=== PATIENT | male | born 1935 | race Caucasian/White ===

== ENCOUNTER 2017-05-15 17:58 | Inpatient (IN) | payer MEDICARE, OTHER ==
[2017-05-15 18:17] VITALS: BMI 27.9
[2017-05-15 18:19] LABS: BASO % 0.3 % (0.0-2.0); EOS # 0.2 K/uL (0.0-0.7); EOS % 1.9 % (0.0-4.0); HEMOGLOBIN 12.4 g/dL (12.0-18.0); LYMPH # 4.3 K/uL (1.0-4.3); MEAN CELL VOLUME 87.2 fL (80.0-94.0); MEAN CORPUSCULAR HEMOGLOBIN 29.2 pg (27.0-31.0); MEAN CORPUSCULAR HGB CONC 33.5 g/dL (33.0-37.0); MEAN PLATELET VOLUME 7.7 fL (7.2-11.7); MONO # 0.7 K/uL (0.0-0.8); MONO % 7.1 % (0.0-10.0); NEUT % 43.7 % (50.0-75.0); NRBC % 0.1 % (0.0-2.0); RBC 4.26 Mil/uL (4.40-5.90); RED CELL DISTRIBUTION WIDTH 12.7 % (11.5-14.5); WHITE BLOOD COUNT 9.2 K/uL (4.8-10.8)
[2017-05-15 18:27] LABS: PROTHROMBIN TIME 11.1 SECONDS (9.7-12.2)
--- NOTE | 2017-05-15 18:30 | CP.PCM.PN ---
<Gemma Malone - Last Filed: 05/15/17 18:24> Subjective - Date & Time of Evaluation Date of Evaluation: 05/15/17 Time of Evaluation: 18:24 - Subjective Subjective: CODE Heart - 18:04 CC: Chest pain x 2 days HPI: History retrieved from , who was at bedside. 81 M with PMHx of Epilepsy presents to the ED with chest pain x 2 days. reports the chest pain started last night, while he was watching TV. Pain was sharp, constant, midsternal with no radiation. Patient admitted to nausea, no vomiting, no diaphoresis. The pain persisted today, patient went to see his PMD - who told him to go to the ED. EKG reviewed, ST elevation noted in II, III, AVF with ischemia noted on anterior leads. Patient give ASA, nitro, Heparin drip, and brillanta. Patient is for cardiac catherization. PMHx: Epilepsy PSHx: Appendectomy Meds: Dilatan 100mg PO BID, Xanax 0.5mg PO Q12H All: NKDA SHx: Smoked 36 years ago, for 1 year - 6-10 / day, denied alcohol or illicit drug use FHx: Unremarkable PMD: Dr. Arndt? Gemma Malone DO, PGY-1 Objective - Vital Signs/Intake and Output Vital Signs (last 24 hours): Temp Pulse Resp BP Pulse Ox 98.3 F 85 20 141/77 99 05/15/17 18:07 05/15/17 18:07 05/15/17 18:07 05/15/17 18:07 05/15/17 18:07 - Labs Labs: 05/15/17 18:14 <Delfino Medel - Last Filed: 05/16/17 07:01> Objective - Vital Signs/Intake and Output Vital Signs (last 24 hours): Temp Pulse Resp BP Pulse Ox 98.5 F 75 15 94/55 L 99 05/16/17 04:00 05/16/17 05:14 05/16/17 05:14 05/16/17 05:14 05/16/17 05:14 Intake and Output: 05/15/17 05/16/17 18:59 06:59 Intake Total 430 Output Total 650 Balance -220 - Medications Medications: Current Medications Clonazepam (Klonopin) 0.5 mg PO BID [facility] Enoxaparin Sodium (Lovenox) 40 mg SC DAILY [facility] Sodium Chloride (Sodium Chloride 0.9%) 1,000 mls @ 30 mls/hr IV .Q24H [facility] Last Admin: 05/15/17 18:34 Dose: 30 mls/hr Metoprolol Tartrate (Lopressor) 25 mg PO BID [facility] Phenytoin Sodium (Dilantin) 100 mg PO QID [facility] Last Admin: 05/15/17 23:53 Dose: 100 mg Rosuvastatin Calcium (Crestor) 40 mg PO HS [facility] Last Admin: 05/15/17 23:52 Dose: 40 mg - Labs Labs: 05/16/17 06:36 05/16/17 06:36 PT 11.1 SECONDS (9.7-12.2) 05/15/17 18:14 INR 1.0 05/15/17 18:14 APTT 31 SECONDS (21-34) 05/15/17 18:14 Attending/Attestation - Attestation I have personally seen and examined this patient.: Yes I have fully participated in the care of the patient.: Yes I have reviewed all pertinent clinical information, including history, physical exam and plan: Yes Notes (Text): 05/16/17 06:58 Hospitalist: Code Heart was called after staff in ER found ST elevations in leads II, III, avF as well as reciprocal changes seen in V1 and V2. He was still having chest pain by the time I came to ER however had decreased. He was already given heparin as well as brillinta and heparin ggt. He was then moved to the cardiac catherization lab. Following this will be in ICU for further monitoring he will be admitted to the internal medicine confectionery maker. Delfino Medel
[2017-05-15] MEDS ORDERED: Heparin25000 units/250ml 1/2NS 25,000 UNITS/250 ML BAG IV ONE (18:34)
[2017-05-15] MEDS ORDERED: Sodium Chloride 0.9% 1,000 ML IV SCH (18:34)
[2017-05-15 18:39] LABS: ALB/GLOB RATIO 1.3 (1.0-2.1); ALBUMIN 3.7 g/dL (3.5-5.0); ALT/SGPT 17 U/L (21-72); AST/SGOT 29 U/L (17-59); BLOOD UREA NITROGEN 11 mg/dL (9-20); CALCIUM 8.9 mg/dl (8.6-10.4); GFR AFRICAN-AMERICAN > 60; GFR NON-AFRICAN AMERICAN > 60; HDL CHOLESTEROL 45 mg/dL (30-70)
--- NOTE | 2017-05-15 18:49 | C.PDOC ---
History Of Present Illness 81 year old male presents to the ER complaining of chest pain, onset yesterday. States he has never had this before. Pain was described as mild. Patient states he then rested for the night and felt better. The pain recurred this morning. Patient then saw PMD, who attempted to schedule an appointment with a v groove cutter today but was unsuccessful. Patient then went home, and his daughter brought him to the ER when pain persisted. He denies associated shortness of breath or diaphoresis. PMD: Dr. Bart Arndt Time Seen by Provider: 05/15/17 18:07 Chief Complaint (Nursing): Chest Pain History Per: Family () History/Exam Limitations: no limitations Onset/Duration Of Symptoms: Days (x2) Current Symptoms Are (Timing): Still Present Past Medical History Reviewed: Historical Data, Nursing Documentation, Vital Signs Vital Signs: Last Vital Signs Temp 98.3 F 05/15/17 18:07 Pulse 92 H 05/15/17 18:31 Resp 14 05/15/17 18:31 BP 111/61 05/15/17 18:31 Pulse Ox 99 05/15/17 18:58 - Medical History PMH: Seizures (epilepsy) Surgical History: No Surg Hx Family History: States: No Known Family Hx - Social History Hx Tobacco Use: No Hx Alcohol Use: No Hx Substance Use: No - Immunization History Hx Tetanus Toxoid Vaccination: No Hx Influenza Vaccination: No Hx Pneumococcal Vaccination: No Review Of Systems Except As Marked, All Systems Reviewed And Found Negative. Constitutional: Negative for: Sweats, Weakness Cardiovascular: Positive for: Chest Pain Gastrointestinal: Positive for: Nausea. Negative for: Vomiting Neurological: Negative for: Dizziness Physical Exam - Physical Exam Appears: Non-toxic, No Acute Distress Skin: Normal Color, Warm, Dry, No Diaphoretic, No Pale Head: Atraumatic, Normacephalic Eye(s): bilateral: Normal Inspection, PERRL, EOMI Nose: Normal Oral Mucosa: Moist Neck: Normal, Normal ROM, Supple Chest: Symmetrical, No Tenderness Cardiovascular: Rhythm Regular, No Murmur Respiratory: Normal Breath Sounds, No Accessory Muscle Use Gastrointestinal/Abdominal: Normal Exam, Soft, No Tenderness Back: Normal Inspection, No CVA Tenderness, No Vertebral Tenderness Extremity: Bilateral: Atraumatic, Normal Color And Temperature, Normal ROM Neurological/Psych: Oriented x3, Normal Speech ED Course And Treatment - Laboratory Results Result Diagrams: 05/15/17 18:14 05/15/17 18:14 Lab Interpretation: Abnormal (Troponin 0.5) ECG: Interpreted By Me ECG Rhythm: Sinus Rhythm (with acute ST elevation in II, III, AVF c/w acute inferior MN. Reciprocal changes present anteriorly.) ECG Interpretation: Abnormal O2 Sat by Pulse Oximetry: 99 (RA) Pulse Ox Interpretation: Normal - Radiology CXR: Interpreted by Me CXR Interpretation: Yes: Cardiomegaly Reassessment Condition: Improved (after PO SL NTG and ASA) - Physician Consult Information Outcome Of Conversation: Case discussed with Dr Tran tourist information assistant Mental Health Orderly. Code Heart called. Patient treated with ASA, NTG, Heparin, Brillinta and was transferred to the chemical lab supervisor.He remained alert and comfortable in ED. Critical Care Time - Critical Care Note Total Time (in mins): 30 Documented critical care: time excludes all time spent performing seperately billable procedures. Medical Decision Making Medical Decision Making: EKG done in triage showed acute STEMI infarct. Code heart was immediately called at 18:07 Patient was treated in the ER with Aspirin, nitroglycerin, brillanta, and heparin. Dr. Tran was consulted via cell phone. Patient reported some relief of pain following medication. Remained in stable condition in the ER. Patient transported to cardiac catheterization lab as of 18:33 Disposition - Disposition Disposition: HOSPITALIZED Disposition Time: 18:33 Condition: STABLE - POA Present On Arrival: None - Clinical Impression Clinical Impression: Acute myocardial infarction - Scribe Statement The provider has reviewed the documentation as recorded by the Meghann Thapa Provider Attestation: All medical record entries made by the Meghann were at my direction and personally dictated by me. I have reviewed the chart and agree that the record accurately reflects my personal performance of the history, physical exam, medical decision making, and the department course for this patient. I have also personally directed, reviewed, and agree with the discharge instructions and disposition.
[2017-05-15 18:50] LABS: LDL CHOLESTEROL 103 mg/dL (0-129)
[2017-05-15] MEDS ORDERED: Midazolam 2 MG/2 ML VIAL ONE (18:54)
[2017-05-15 18:55] LABS: CK-MB 4.95 ng/mL (0.0-3.38)
[2017-05-15] MEDS ORDERED: DiphenhydrAMINE 50 mg/ml Inj ONE (18:55)
--- NOTE | 2017-05-15 22:45 | CP.PCM.CON ---
History of Present Illness - History of Present Illness History of Present Illness: 81 y/o male originally from [place], (denies smoking), denies any history of high cholesterol, denies any family history of CAD presents to [facility] with c /o chest pain x2 days. Patient noted worsening chest pain, exacerbated by exerction. Patient denies any dizziness, denies any abdominal pain. Patient was noted to have ST wave changes in inferioor and septal leads. PAtient underwent PCI and was transferred to [facility] ICU bed 5. Post procedure, patient denies any pain in right groin, denies any dizziness. Review of Systems - Cardiovascular Cardiovascular: Chest Pain Past Patient History - Past Medical History & Family History Past Medical History?: Yes - Past Social History Smoking Status: Never Smoked - CARDIAC Hx Cardiac Disorders: No - PULMONARY Hx Respiratory Disorders: No - NEUROLOGICAL Hx Neurological Disorder: Yes Hx Seizures: Yes (epilepsy) - HEENT Hx HEENT Problems: No - RENAL Hx Chronic Kidney Disease: No - ENDOCRINE/METABOLIC Hx Endocrine Disorders: No - HEMATOLOGICAL/ONCOLOGICAL Hx Blood Disorders: No - INTEGUMENTARY Hx Dermatological Problems: No - MUSCULOSKELETAL/RHEUMATOLOGICAL Hx Musculoskeletal Disorders: No - GASTROINTESTINAL Hx Gastrointestinal Disorders: No - GENITOURINARY/GYNECOLOGICAL Hx Genitourinary Disorders: No - PSYCHIATRIC Hx Psychophysiologic Disorder: No Hx Substance Use: No - SURGICAL HISTORY Hx Surgeries: Yes Hx Appendectomy: Yes - ANESTHESIA Hx Anesthesia: Yes Hx Anesthesia Reactions: No Hx Malignant Hyperthermia: No Has any member of the family had a problem w/ anesthesia?: No Meds Allergies/Adverse Reactions: Allergies Allergy/AdvReac Type Severity Reaction Status Date / Time No Known Allergies Allergy Verified 05/15/17 18:12 - Medications Medications: Current Medications Clonazepam (Klonopin) 0.5 mg PO BID [facility] Enoxaparin Sodium (Lovenox) 40 mg SC DAILY [facility] Sodium Chloride (Sodium Chloride 0.9%) 1,000 mls @ 30 mls/hr IV .Q24H [facility] Last Admin: 05/15/17 18:34 Dose: 30 mls/hr Metoprolol Tartrate (Lopressor) 25 mg PO BID [facility] Phenytoin Sodium (Dilantin) 100 mg PO QID [facility] Rosuvastatin Calcium (Crestor) 40 mg PO HS [facility] Physical Exam - Head Exam Head Exam: ATRAUMATIC, NORMAL INSPECTION, NORMOCEPHALIC - Eye Exam Pupil Exam: NORMAL ACCOMODATION - Respiratory Exam Respiratory Exam: NORMAL BREATHING PATTERN - Cardiovascular Exam Cardiovascular Exam: REGULAR RHYTHM, +S1, +S2, +S4, Systolic Murmur - GI/Abdominal Exam GI & Abdominal Exam: Normal Bowel Sounds, Soft - Rectal Exam Rectal Exam: NORMAL INSPECTION Results - Vital Signs Recent Vital Signs: Last Vital Signs Temp 98.3 F 05/15/17 18:07 Pulse 92 H 05/15/17 18:31 Resp 14 05/15/17 18:31 BP 111/61 05/15/17 18:31 Pulse Ox 99 05/15/17 21:21 - Labs Result Diagrams: 05/15/17 18:14 05/15/17 18:14 Labs: Laboratory Results - last 24 hr 05/15/17 05/15/17 05/15/17 18:14 18:14 18:14 WBC 9.2 RBC 4.26 L Hgb 12.4 Hct 37.1 MCV 87.2 MCH 29.2 MCHC 33.5 RDW 12.7 Plt Count 234 MPV 7.7 Neut % (Auto) 43.7 L Lymph % (Auto) 47.0 H [place] % (Auto) 7.1 Eos % (Auto) 1.9 Baso % (Auto) 0.3 Neut # (Auto) 4.0 Lymph # (Auto) 4.3 [place] # (Auto) 0.7 Eos # (Auto) 0.2 Baso # (Auto) 0.0 PT 11.1 INR 1.0 APTT 31 Sodium 133 Potassium 3.9 Chloride 93 L Carbon Dioxide 32 H Anion Gap 12 BUN 11 Creatinine 1.0 Est GFR ( Amer) > 60 Est GFR (Non-Af Amer) > 60 Random Glucose 198 H Calcium 8.9 Total Bilirubin 0.2 AST 29 ALT 17 L Alkaline Phosphatase 79 Total Creatine Kinase 74 CK-MB (Mass) 4.95 H Troponin I 0.5000 H* Total Protein 6.5 Albumin 3.7 Globulin 2.8 Albumin/Globulin Ratio 1.3 Triglycerides 77 Cholesterol 168 LDL Cholesterol Direct 103 HDL Cholesterol 45 Blood Type Antibody Screen 05/15/17 18:17 WBC RBC Hgb Hct MCV MCH MCHC RDW Plt Count MPV Neut % (Auto) Lymph % (Auto) [place] % (Auto) Eos % (Auto) Baso % (Auto) Neut # (Auto) Lymph # (Auto) [place] # (Auto) Eos # (Auto) Baso # (Auto) PT INR APTT Sodium Potassium Chloride Carbon Dioxide Anion Gap BUN Creatinine Est GFR ( Amer) Est GFR (Non-Af Amer) Random Glucose Calcium Total Bilirubin AST ALT Alkaline Phosphatase Total Creatine Kinase CK-MB (Mass) Troponin I Total Protein Albumin Globulin Albumin/Globulin Ratio Triglycerides Cholesterol LDL Cholesterol Direct HDL Cholesterol Blood Type O POSITIVE Antibody Screen Negative Assessment & Plan - Assessment and Plan (Free Text) Assessment: Myocaridal Infarction: continue rx as per cardiology, dual antiplatelet (asa/ brilinta), statin, lopressor as BP toelrated -ho Seizures (taking dilantin) last seizures more than 30 years ago -h/o anxiety taking xanax PRN BID -DVT ppx lovenox -PUD ppx pepcid Patient remains hemodyanmically stable -post cath EKG. - Date & Time Date: 05/15/17 Time: 22:47
--- NOTE | 2017-05-16 02:40 | CARDCATH ---
PROCEDURE DATE: 05/15/2017. INDICATION: ST-elevation FL involving the inferior wall. PROCEDURES PERFORMED: Emergent left heart catheterization with selective left and right coronary angiogram, left ventriculogram, successful PTCA stenting of mid RCA, 100% occlusion, deployment of 2.75 x 18 Xience drug-eluting stent, lesion reduction from 100 % down to 0% LUCINDA 3 flow, 6-South African right femoral arterial access and Mynx closure device for hemostasis. TECHNIQUE OF PROCEDURE: After obtaining informed consent, the patient was brought to the cardiac catheterization suite in post-absorptive and non-sedated state. The patient was prepped and draped in the usual sterile fashion. A 2% lidocaine was used for infiltration of anesthesia. Using modified Seldinger technique, a 6-South African sheath was introduced into the right femoral artery. Subsequently, over a J-wire, JR4 guiding catheter was used to engage the right coronary artery. The mid RCA lesion was identified which was 100% occluded with LUCINDA 0 flow. At this stage, the wire was negotiated into the RV branches. Subsequently, Whisper wire was negotiated into the distal RCA. The lesion was dilated with 2.0 balloon and subsequently stented with the 2.75 x 18 Xience drug-eluting stent; lesion reduction down to 0% LUCINDA-3 flow. Subsequently, left coronary angiograms were obtained and LV gram was obtained. LEFT CORONARY ANATOMY: The left main large-sized vessel bifurcates into LAD and left circumflex coronary artery. LAD has a mid 60% stenosis bifurcates into diagonal branch with osteal 60% stenosis. Left circumflex large-sized vessel gives off obtuse marginal branch, right dominant circulation. Normal LV ejection fraction 50%, EDP was 24 mmHg. IMPRESSION: Successful revascularization of mid right coronary artery 100% occlusion with deployment of 2.75 x 18 Xience drug-eluting stent, normal left ventricular ejection fraction, mildly elevated end-diastolic pressure. RECOMMENDATIONS: Continue dual-antiplatelet therapy for one year. Guideline-directed therapy for CAD. ICU monitoring for 24 hours. Alexandre Tran MD
[2017-05-16 06:44] LABS: BASO % 0.3 % (0.0-2.0); EOS # 0.2 K/uL (0.0-0.7); EOS % 1.6 % (0.0-4.0); HEMOGLOBIN 11.4 g/dL (12.0-18.0); LYMPH # 4.5 K/uL (1.0-4.3); MEAN CELL VOLUME 87.7 fL (80.0-94.0); MEAN CORPUSCULAR HEMOGLOBIN 29.1 pg (27.0-31.0); MEAN CORPUSCULAR HGB CONC 33.2 g/dL (33.0-37.0); MEAN PLATELET VOLUME 8.2 fL (7.2-11.7); MONO % 9.3 % (0.0-10.0); NEUT # 5.3 K/uL (1.8-7.0); NEUT % 47.8 % (50.0-75.0); NRBC % 0.1 % (0.0-2.0); RBC 3.93 Mil/uL (4.40-5.90); RED CELL DISTRIBUTION WIDTH 12.6 % (11.5-14.5)
[2017-05-16 06:54] LABS: ALB/GLOB RATIO 1.2 (1.0-2.1); ALBUMIN 3.2 g/dL (3.5-5.0); ALT/SGPT 33 U/L (21-72); AST/SGOT 131 U/L (17-59); BLOOD UREA NITROGEN 9 mg/dL (9-20); CALCIUM 8.6 mg/dl (8.6-10.4); GFR AFRICAN-AMERICAN > 60; GFR NON-AFRICAN AMERICAN > 60; MAGNESIUM 1.8 mg/dL (1.6-2.3)
--- NOTE | 2017-05-16 08:29 | RAD ---
Chest x-ray single frontal view History: Code heart. Comparison: None available. Findings: Mild venous congestion. Right hilar prominence. Curvilinear nodular density at the left lung base, nonspecific. Tortuous ectatic aorta. Mild cardiomegaly. Degenerative changes in the spine and shoulders. Impression: Mild venous congestion. Right hilar prominence. Curvilinear nodular density at the left lung base, nonspecific. Tortuous ectatic aorta. Mild cardiomegaly.
[2017-05-16] MEDS: Enoxaparin 40 mg Syringe SC SCH (09:35)
[2017-05-16] MEDS ORDERED: Sodium Chloride 0.9% 1,000 ML IV ONE ×2 (11:18→14:14)
--- NOTE | 2017-05-16 13:05 | CP.PCM.PN ---
Subjective - Date & Time of Evaluation Date of Evaluation: 05/16/17 Time of Evaluation: 13:04 - Subjective Subjective: Patient seen and examined in ICU. Patient sitting in bed with family at bedside. Patient reports since the cardiac catheterization his chest pain has resolved. He reports some lower extremity edema and that he slept very poorly overnight. On a subsequent encounter, patient reported twitching some, and requested that his seizure medication (phenytoin) be given to him as 200 mg in the morning and 200 at night. Nurse reports holding the patient's B-blockers secondary to low blood pressure and low heart rate. Objective - Vital Signs/Intake and Output Vital Signs (last 24 hours): Temp Pulse Resp BP Pulse Ox 98.5 F 71 22 89/46 L 99 05/16/17 04:00 05/16/17 12:00 05/16/17 12:00 05/16/17 12:00 05/16/17 12:00 Intake and Output: 05/16/17 05/16/17 06:59 18:59 Intake Total 430 Output Total 650 Balance -220 - Medications Medications: Current Medications Clonazepam (Klonopin) 0.5 mg PO BID [facility] Last Admin: 05/16/17 09:34 Dose: 0.5 mg Enoxaparin Sodium (Lovenox) 40 mg SC DAILY [facility] Last Admin: 05/16/17 09:35 Dose: 40 mg Sodium Chloride (Sodium Chloride 0.9%) 1,000 mls @ 30 mls/hr IV .Q24H [facility] Last Admin: 05/15/17 18:34 Dose: 30 mls/hr Metoprolol Tartrate (Lopressor) 25 mg PO BID [facility] Last Admin: 05/16/17 09:34 Dose: Not Given Phenytoin Sodium (Dilantin) 100 mg PO QID [facility] Last Admin: 05/16/17 09:34 Dose: 100 mg Rosuvastatin Calcium (Crestor) 40 mg PO HS [facility] Last Admin: 05/15/17 23:52 Dose: 40 mg - Labs Labs: 05/16/17 06:36 05/16/17 06:36 PT 11.1 SECONDS (9.7-12.2) 05/15/17 18:14 INR 1.0 05/15/17 18:14 APTT 31 SECONDS (21-34) 05/15/17 18:14 - Constitutional Appears: Other (fatigued) - Head Exam Head Exam: ATRAUMATIC, NORMOCEPHALIC - Eye Exam Eye Exam: EOMI, Normal appearance - ENT Exam ENT Exam: Mucous Membranes Moist - Neck Exam Additional comments: 3 cm of JVD - GI/Abdominal Exam GI & Abdominal Exam: Soft, Normal Bowel Sounds - Neurological Exam Neurological Exam: Awake, Oriented x3 - Psychiatric Exam Psychiatric exam: Anxious - Skin Skin Exam: Dry, Intact, Normal Color, Warm Assessment and Plan - Assessment and Plan (Free Text) Assessment: 81 year old male with a past medical history of seizure disorder (unspecified) who presented with 1.5 days of severe chest pain who was found to have STEMI of the inferior wall. Cardiac catheterization revealed 100% occlusion of the RCA and APARNA was placed. Patient was kept in the ICU and started on dual antiplatelet therapy, beta-leila, statin, and was found to be hypotensive and therefore fluid resuscitated secondary (to the patient suffering right ventricular infarct and now) being fairly preload dependent. Patient is to be transferred to telemetry. Plan: Will continue with 150 ml/hr of NS - Beta-leila Metoprolol tartarte to be continued 25 mg BID and not held, unless patient develops symptomatic bradycardic - Brillinta 90 mg BID - Aspirin 81 mg PO daily - High intensity statin 40 mg Rosuvastatin - Phenytoin 200 mg BID - Klonopin 0.5 mg BID - Lovenox 40 mg SC Daily for DVT prophylaxis Case discussed with attending physician Dr. Tran
[2017-05-16] MEDS: Sodium Chloride 0.9% 1,000 ML IV SCH ×2 (18:00→22:02)
[2017-05-17] MEDS: Sodium Chloride 0.9% 1,000 ML IV SCH ×5 (00:53→23:04)
--- NOTE | 2017-05-17 06:04 | HP ---
HISTORY OF PRESENT ILLNESS: This is an 81 years old [place] male with history of seizure disorder. He was not in any medications except Dilantin and clonazepam, presented to emergency room with chest pain and code heart. The patient went to cardiac cath emergently, and he had PCI. Subsequently, the patient was admitted to Intensive Care Unit for further management. The patient had no chest pain or shortness of breath or any other cardiovascular symptoms at the time of this examination. The patient denied to have any previous chest pain or OR. ALLERGIES: NO KNOWN ALLERGIES. MEDICATIONS: As above. PAST MEDICAL HISTORY: As above. SOCIAL HISTORY: No history of smoking, EtOH, or substance abuse. FAMILY HISTORY: Noncontributory. PHYSICAL EXAMINATION: VITAL SIGNS: Blood pressure 103/61, temperature 98.2, respiratory rate 16, and pulse 71. HEENT: Pupils equal and reactive to light. Normal appearing mucosa of the conjunctivae, oropharynx, and nasal membrane mucosa. NECK: Supple. No JVD. No carotid bruit. No lymph node. No thyromegaly. CHEST AND LUNGS: Bilateral symmetrical expansion. Good air exchange. No rales, no rhonchi. CARDIOVASCULAR SYSTEM: PMI not localized. S1, S2. No additional sounds. ABDOMEN: Normoactive bowel sounds. No tenderness. No organomegaly. No masses. EXTREMITIES: No cyanosis, no clubbing, no edema. PECAN CLEANER: Alert, awake, and oriented x3. No neurological deficit could be appreciated. ASSESSMENT: 1. Myocardial infarction, status post percutaneous coronary intervention. 2. History of seizure disorder. 3. History of an anxiety. PLAN: Continue beta leila as tolerated and double antiplatelet. Follow cardiology recommendations. Continue intensive care unit management. Merlene Hampton MD
[2017-05-17 06:37] LABS: BASO % 0.2 % (0.0-2.0); EOS # 0.5 K/uL (0.0-0.7); LYMPH # 5.1 K/uL (1.0-4.3); LYMPH % 52.3 % (20.0-40.0); MEAN CELL VOLUME 87.1 fL (80.0-94.0); MEAN CORPUSCULAR HEMOGLOBIN 29.9 pg (27.0-31.0); MEAN CORPUSCULAR HGB CONC 34.4 g/dL (33.0-37.0); MEAN PLATELET VOLUME 8.5 fL (7.2-11.7); MONO % 10.6 % (0.0-10.0); NEUT # 3.1 K/uL (1.8-7.0); NEUT % 31.9 % (50.0-75.0); NRBC % 0.1 % (0.0-2.0); RBC 3.68 Mil/uL (4.40-5.90); RED CELL DISTRIBUTION WIDTH 12.5 % (11.5-14.5); WHITE BLOOD COUNT 9.7 K/uL (4.8-10.8)
[2017-05-17 06:50] LABS: ALB/GLOB RATIO 1.3 (1.0-2.1); ALBUMIN 3.1 g/dL (3.5-5.0); ALT/SGPT 28 U/L (21-72); AST/SGOT 65 U/L (17-59); BLOOD UREA NITROGEN 15 mg/dL (9-20); GFR AFRICAN-AMERICAN > 60; GFR NON-AFRICAN AMERICAN > 60; MAGNESIUM 1.8 mg/dL (1.6-2.3)
--- NOTE | 2017-05-17 09:47 | CP.PCM.PN ---
Subjective - Date & Time of Evaluation Date of Evaluation: 05/17/17 Time of Evaluation: 07:45 - Subjective Subjective: Patient seen and examined in ICU sitting at bedside. Patient denies chest pain, dyspnea, or palpitations. Patient states he slept better overnight. Nurse reports no untoward events overnight. Objective - Vital Signs/Intake and Output Vital Signs (last 24 hours): Temp Pulse Resp BP Pulse Ox 98.3 F 78 20 113/58 L 100 05/17/17 08:46 05/17/17 08:00 05/17/17 08:00 05/17/17 05:55 05/17/17 08:00 Intake and Output: 05/17/17 05/17/17 06:59 18:59 Intake Total 2070 Output Total 1100 Balance 970 - Medications Medications: Current Medications Aspirin (Ecotrin) 81 mg PO DAILY [facility] Clonazepam (Klonopin) 0.5 mg PO BID [facility] Last Admin: 05/16/17 17:36 Dose: 0.5 mg Enoxaparin Sodium (Lovenox) 40 mg SC DAILY [facility] Last Admin: 05/16/17 09:35 Dose: 40 mg Sodium Chloride (Sodium Chloride 0.9%) 1,000 mls @ 150 mls/hr IV .Q6H40M [facility] Last Admin: 05/17/17 05:30 Dose: Not Given Metoprolol Tartrate (Lopressor) 25 mg PO BID [facility] Last Admin: 05/16/17 17:36 Dose: 25 mg Phenytoin Sodium (Dilantin) 200 mg PO BID [facility] Last Admin: 05/16/17 17:37 Dose: 200 mg Rosuvastatin Calcium (Crestor) 40 mg PO HS [facility] Last Admin: 05/16/17 22:01 Dose: 40 mg Ticagrelor (Brilinta) 90 mg PO BID [facility] Last Admin: 05/16/17 17:38 Dose: 90 mg - Labs Labs: 05/17/17 06:30 05/17/17 06:28 PT 11.1 SECONDS (9.7-12.2) 05/15/17 18:14 INR 1.0 05/15/17 18:14 APTT 31 SECONDS (21-34) 05/15/17 18:14 - Constitutional Appears: No Acute Distress - Head Exam Head Exam: ATRAUMATIC, NORMOCEPHALIC - Eye Exam Eye Exam: EOMI, Normal appearance - ENT Exam ENT Exam: Mucous Membranes Moist - Neck Exam Neck Exam: Normal Inspection - Respiratory Exam Respiratory Exam: Clear to Ausculation Bilateral, NORMAL BREATHING PATTERN. absent: Accessory Muscle Use - Cardiovascular Exam Cardiovascular Exam: RRR, +S1, +S2 - GI/Abdominal Exam GI & Abdominal Exam: Soft. absent: Guarding, Rigid - Extremities Exam Extremities Exam: Normal Inspection. absent: Pedal Edema - Neurological Exam Neurological Exam: Alert, Awake, Oriented x3 Additional comments: tremor of head and UE consistent with essential tremor - Psychiatric Exam Psychiatric exam: Normal Affect, Normal Mood - Skin Skin Exam: Dry, Intact, Normal Color, Warm Assessment and Plan - Assessment and Plan (Free Text) Assessment: 81 year old male with a past medical history of seizure disoder (unspecified) who presented with 1.5 days of severe chest pain who was found to have STEMI of the inferior wall. Cardiac catheterization revealed 100% occlusion of the RCA and APARNA was placed. Patient was kept in the ICU and started on dual antiplatelet therapy, beta-leila, statin, and was found to be hypotensive and started on fluids. Currently, the patient is hemodynamically stable and off of fluids. Plan: - Beta-leila Metoprolol Tartarte to be continued 25 mg BID and not held, unless patient develops symptomatic bradycardic - Brillinta 90 mg BID - Aspirin 81 mg PO daily - High intensity statin 40 mg Rosuvastatin - Phenytoin 200 mg BID - Klonopin 0.5 mg BID - Lovenox 40 mg SC Daily for DVT prophylaxis - ECHOCARDIOGRAM performed, but not interpreted. Case discussed with attending physician Dr. Tran
[2017-05-17] MEDS: Enoxaparin 40 mg Syringe SC SCH (09:49)
--- NOTE | 2017-05-17 12:29 | CARD ---
APPROVED REPORT EXAM: Two-dimensional and M-mode echocardiogram with Doppler and color Doppler. Other Information Quality : GoodRhythm : INDICATION Non STEMI Acute GA 2D DIMENSIONS IVSd0.9 (0.7-1.1cm)LVDd4.3 (3.9-5.9cm) PWd1.2 (0.7-1.1cm)LVDs2.8 (2.5-4.0cm) FS (%) 35.1 %LVEF (%)64.7 (>50%) M-Mode DIMENSIONS RVDd1.77 (2.1-3.2cm)Left Atrium (MM)3.31 (2.5-4.0cm) Aortic Root4.05 (2.2-3.7cm)Aortic Cusp Exc.2.00 (1.5-2.0cm) Mitral Valve MV E Utkmdbxm77.1cm/sMV A Rxjwbbjh68.6cm/sE/A ratio0.9 TDI E/Lateral E'0.0E/Medial E'0.0 Tricuspid Valve TR Peak Orhrjjfp148yk/sTR Peak Gr.32eiVmZWKQ55clMw LEFT VENTRICLE The left ventricle is normal size. There is normal left ventricular wall thickness. The left ventricular function is normal. The left ventricular ejection fraction is within the normal range. There is normal LV segmental wall motion. Tissue Doppler imaging reveals mild left ventricular diastolic dysfunction. No left ventricle thrombus noted on this study. There is no ventricular septal defect visualized. There is no left ventricular aneurysm. There is no mass noted in the left ventricle. RIGHT VENTRICLE The right ventricle is normal size. There is normal right ventricular wall thickness. The right ventricular systolic function is normal. ATRIA The left atrium size is normal. The right atrium size is normal. The interatrial septum is intact with no evidence for an atrial septal defect. AORTIC VALVE The aortic valve is calcified but opens well. No aortic regurgitation is present. There is no aortic valvular stenosis. There is no aortic valvular vegetation. MITRAL VALVE The mitral valve is normal in structure. There is no mitral valve stenosis. There is no mitral valve regurgitation noted. TRICUSPID VALVE The tricuspid valve is normal in structure. There is no tricuspid valve regurgitation noted. PULMONIC VALVE The pulmonary valve is normal in structure. There is no pulmonic valvular regurgitation. GREAT VESSELS The aortic root is mildly enlarged. The ascending aorta is normal in size. The pulmonary artery is normal. The IVC is normal in size and collapses >50% with inspiration. PERICARDIAL EFFUSION There is a trace loculated anterior pericardial effusion. <Conclusion> Tissue Doppler imaging reveals mild left ventricular diastolic dysfunction. The left ventricular function is normal. The left ventricular ejection fraction is within the normal range. The aortic valve is calcified but opens well. The aortic root is mildly enlarged.LVEF IS 65%.
--- NOTE | 2017-05-17 12:48 | CARD ---
APPROVED REPORT EKG Measurement Heart [id number] <Conclusion> Sinus rhythm with 1st degree AV block Inferior-posterior infarct, possibly acute ACUTE [place] / STEMI Consider right ventricular involvement in acute inferior infarct Abnormal ECG
[2017-05-17 18:07] VITALS: O2SAT 97
[2017-05-18] MEDS: Sodium Chloride 0.9% 1,000 ML IV SCH (01:35)
--- NOTE | 2017-05-18 02:19 | PN ---
DATE: 05/17/2017. SUBJECTIVE: The patient is seen today 05/17/2017. He is not in any cardiopulmonary distress, status post PCI after code heart. PHYSICAL EXAMINATION: VITAL SIGNS: Blood pressure 100/63, temperature 98.4, respiratory rate 20 and pulse 71. HEENT: Pupils equal, reactive to light. Normal-appearing mucosa of the conjunctivae, oropharynx and nasal membrane mucosa. NECK: Supple. No JVD. No carotid bruit. No lymph nodes. No thyromegaly. CHEST AND LUNGS: Bilateral symmetrical expansion. Good air exchange. No rales, no rhonchi. CARDIOVASCULAR SYSTEM: PMI not localized. S1 and S2. No additional sounds. ABDOMEN: Normoactive bowel sounds. No tenderness. No organomegaly. No masses. EXTREMITIES: No cyanosis, no clubbing, no edema. 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 No neurological deficits could be appreciated. ASSESSMENT: Status post ST elevation myocardial infarction, status post percutaneous coronary intervention, seizure disorder. PLAN: Continue current medications including double antiplatelet. Follow Cardiology recommendations. Merlene Hampton MD
[2017-05-18 08:09] VITALS: BP 112/65; RESP 18; TEMP 98.7
[2017-05-18] MEDS: Enoxaparin 40 mg Syringe SC SCH (09:26)
[2017-05-18 13:40] VITALS: PULSE 66
--- NOTE | 2017-05-18 16:46 | CP.PCM.PN ---
Objective - Vital Signs/Intake and Output Vital Signs (last 24 hours): Temp Pulse Resp BP Pulse Ox 98.7 F 66 18 112/65 97 05/18/17 07:00 05/18/17 13:17 05/18/17 07:00 05/18/17 09:27 05/18/17 13:17 Intake and Output: 05/18/17 05/18/17 06:59 18:59 Intake Total 2075 Output Total 900 Balance 1175 - Labs Labs: 05/17/17 06:30 05/17/17 06:28 PT 11.1 SECONDS (9.7-12.2) 05/15/17 18:14 INR 1.0 05/15/17 18:14 APTT 31 SECONDS (21-34) 05/15/17 18:14 Assessment and Plan - Assessment and Plan (Free Text) Assessment: Patient is seen and examined. Alert, denies any chaet pain or distress. caleared by the cardiologyst.
--- NOTE | 2017-05-20 07:50 | DS ---
REASON FOR ADMISSION: This is an 81-year-old [place] male with history of seizure disorder, controlled on Dilantin, was admitted after code heart and ST elevation myocardial infarction of the inferior wall. COURSE OF HOSPITALIZATION: The patient was admitted to Intensive Care Unit after having a cardiac cath that revealed 100% occlusion of the right coronary artery and drug-eluting stent was placed. The patient was kept in ICU and started on dual antiplatelet therapy, beta blockers, and statin. The patient was transferred from ICU to the floor. He was started on physical therapy and he did not have any symptoms. The patient was discharged in stable condition to continue Brilinta 90 mg twice a day, aspirin 81 mg daily, Crestor 20 mg daily as well as metoprolol 12.5 mg twice a day and to resume also his preadmission medications. FINAL DIAGNOSES: Inferior wall myocardial infarction. Seizure disorder. Merlene Hampton MD
== END 2017-05-18 14:30 | disposition home or self-care (01) | DRG 247 ==
LOC: C.ER 17:58 → C.9I 20:00 → C.6T 05-17 13:55
PROVIDERS: ADMIT Internal Medicine; ATTEND Internal Medicine
PROC: 027034Z Dilation of Coronary Artery, One Artery with Drug-eluting Intraluminal Device, Percutaneous Approach (ICD-10-PCS; principal; 2017-05-15)
PROC: 4A023N7 Measurement of Cardiac Sampling and Pressure, Left Heart, Percutaneous Approach (ICD-10-PCS; 2017-05-15)
PROC: B2111ZZ Fluoroscopy of Multiple Coronary Arteries using Low Osmolar Contrast (ICD-10-PCS; 2017-05-15)
PROC: B2151ZZ Fluoroscopy of Left Heart using Low Osmolar Contrast (ICD-10-PCS; 2017-05-15)
DX: I21.19 ST elevation (STEMI) myocardial infarction involving other coronary artery of inferior wall (principal); I95.9 Hypotension, unspecified; G40.909 Epilepsy, unspecified, not intractable, without status epilepticus; Z79.899 Other long term (current) drug therapy; I25.10 Atherosclerotic heart disease of native coronary artery without angina pectoris; Z87.891 Personal history of nicotine dependence; G25.0 Essential tremor

== ENCOUNTER 2017-09-07 14:27 | Inpatient (IN) | payer MEDICARE, OTHER ==
[2017-09-07 14:27] VITALS: BMI 27.9
--- NOTE | 2017-09-07 15:03 | C.PDOC ---
History Of Present Illness 81 year old male presents to ED with new onset of black stool for the past week. Pt states symptoms present with all BM. +generalized weakness, ABRAMS. No associated abdominal pain, rectal pain, nausea, or vomiting. Denies history of GI disease. Pt is on Brilinta, ASA. Also complains of new onset of intermittent LUE pain for the past 2 weeks. Notes its non-exertional and is worse when sitting. No associated change in movement, and position. Denies chest pain, or neck pain. NEW ONSET BLACK STOOL X 1 WEEK. PS SX PRESENT W ALL BM. +GEN WEAKNESS, ABRAMS. NO ASSOC ABD, RECTAL PAIN, NV. DENIES HO GI DISEASE. ON BRILINTA, ASA. ALSO CO NEW ONSET INTERMIT LUE PAIN X 2 WEEKS. NONEXERTIONAL, PS WORSE WHEN SITTING. NO ASSOC MOVEMENT, POSITION. NO ASSOC CP, NECK PAIN. past medical history of seizure disoder (unspecified) who presented with 1.5 days of severe chest pain who was found to have STEMI of the inferior wall. Cardiac catheterization 04/2017 revealed 100% occlusion of the RCA and APARNA was placed. Plan: - Beta-leila Metoprolol Tartarte to be continued 25 mg BID and not held, unless patient develops symptomatic bradycardic - Brillinta 90 mg BID - Aspirin 81 mg PO daily - High intensity statin 40 mg Rosuvastatin - Phenytoin 200 mg BID - Klonopin 0.5 mg BID EXAM MILD DIST NONTOXIC 107/70 HEENT NO PALLOR LUNGS CTA B/L NO W/R/R ABD NEG RECTAL RN OUTLAW BEDSIDE; BLACK STOOL NO CLOT, HEMORRHOIDS EDEMA B/L LE EXT LUE AROM WO DIFF ATRAUM NONTEND NEURO NO FOCAL DEF. REMAINDER NEG Time Seen by Provider: 09/07/17 14:54 Chief Complaint (Nursing): GI Problem History Per: Patient History/Exam Limitations: no limitations Onset/Duration Of Symptoms: Days Current Symptoms Are (Timing): Still Present Quality Of Discomfort: "Pain" Past Medical History Reviewed: Historical Data, Nursing Documentation, Vital Signs Vital Signs: Last Vital Signs Temp 98.2 F 09/08/17 07:15 Pulse 75 09/08/17 08:00 Resp 18 09/08/17 07:15 BP 107/65 09/08/17 10:25 Pulse Ox 98 09/08/17 07:15 - Medical History PMH: Seizures (epilepsy) Denies: Chronic Kidney Disease Surgical History: Appendectomy - [facility] Procedures DILATION OF 1 COR ART WITH DRUG-ELUT INTRA, PERC APPROACH (05/15/17) FLUOROSCOPY OF LEFT HEART USING LOW OSMOLAR CONTRAST (05/15/17) FLUOROSCOPY OF MULT COR ART USING L OSM CONTRAST (05/15/17) MEASURE OF CARDIAC SAMPL & PRESSURE, L HEART, PERC APPROACH (05/15/17) Family History: States: Unknown Family Hx - Social History Hx Tobacco Use: No Hx Alcohol Use: No Hx Substance Use: No - Immunization History Hx Tetanus Toxoid Vaccination: No Hx Influenza Vaccination: No Hx Pneumococcal Vaccination: No Review Of Systems Except As Marked, All Systems Reviewed And Found Negative. Constitutional: Positive for: Weakness. Negative for: Fever, Chills Cardiovascular: Negative for: Chest Pain, Palpitations Respiratory: Negative for: Cough, Shortness of Breath Gastrointestinal: Positive for: Other (black stool). Negative for: Nausea, Vomiting, Abdominal Pain, Rectal Pain Musculoskeletal: Positive for: Arm Pain (left) Neurological: Negative for: Weakness, Numbness, Headache Physical Exam - Physical Exam Appears: Non-toxic, Other (In mild distress) Skin: Normal Color, Warm, Dry, No Pale Head: Atraumatic, Normacephalic Eye(s): bilateral: Normal Inspection Oral Mucosa: Moist Neck: Normal ROM, Supple Cardiovascular: Rhythm Regular, No Murmur Respiratory: Normal Breath Sounds, No Rales, No Rhonchi, No Wheezing Gastrointestinal/Abdominal: Soft, No Tenderness Rectal: Hemorrhoids, Other (black stool, no clot) Extremity: Normal ROM (LUE AROM WO difficulty), No Tenderness, Pedal Edema (B/L LE), Capillary Refill (less than 2 seconds) Extremity: Bilateral: Atraumatic Neurological/Psych: Oriented x3, Normal Speech, No Other (no focal deficits) ED Course And Treatment - Laboratory Results Result Diagrams: 09/07/17 15:20 09/07/17 15:20 ECG: Interpreted By Me ECG Rhythm: Sinus Rhythm ECG Interpretation: Normal Rate From EC O2 Sat by Pulse Oximetry: 100 (RA) Pulse Ox Interpretation: Normal - Radiology CXR: Interpreted by Me CXR Interpretation: Yes: No Acute Disease Progress - Re-Evaluation Re-evaluation Note: 06/16/18 16:41 VSS APPEARS COMFORTABLE UNCH PRIOR PENDING CALLBACK DR ALMEIDA D/W DR ENCINAS MED PROCESS DEVELOPMENT ENGINEER WILL ADMIT. CONSULT DR DIAZ - Data Reviewed Data Reviewed: Lab, Diagnostic imaging, EKG, Old records - Continuity of Care Discussed patient case with:: Patient, Family-HIPPA compliant, On-call PMD-pt unassigned Medical Decision Making Medical Decision Making: Plan: Blood work Urinalysis CXR EKG Reassess Disposition Counseled Patient/Family Regarding: Studies Performed, Diagnosis - Disposition Disposition: HOSPITALIZED Disposition Time: 16:41 Condition: STABLE - POA Present On Arrival: None - Clinical Impression Clinical Impression: GI bleed, Anemia, Weakness generalized, Coagulopathy - Scribe Statement The provider has reviewed the documentation as recorded by the Meghann Quintero All medical record entries made by the Leilaniibe were at my direction and personally dictated by me. I have reviewed the chart and agree that the record accurately reflects my personal performance of the history, physical exam, medical decision making, and the department course for this patient. I have also personally directed, reviewed, and agree with the discharge instructions and disposition. Decision To Admit - Pt Status Changed To: Hospital Disposition Of: Inpatient - Admit Certification Admit to Inpatient:: After my assessment, the patient will require hospitalization for at least two midnights. This is because of the severity of symptoms shown, intensity of services needed, and/or the medical risk in this patient being treated as an outpatient. - InPatient: Physician Admission Certification: I certify that this patient requires 2 or more midnights of care for the following reason:: SEE NOTE - . Bed Request Type: Telemetry Admitting Physician: Lizette Encinas Patient Diagnosis: GI bleed, Anemia, Weakness generalized, Coagulopathy
[2017-09-07 15:29] LABS: BASO % 0.3 % (0.0-2.0); EOS # 0.6 K/uL (0.0-0.7); EOS % 4.8 % (0.0-4.0); HEMOGLOBIN 8.5 g/dL (12.0-18.0); LYMPH # 6.2 K/uL (1.0-4.3); MEAN CORPUSCULAR HEMOGLOBIN 29.6 pg (27.0-31.0); MEAN CORPUSCULAR HGB CONC 33.3 g/dL (33.0-37.0); MEAN PLATELET VOLUME 8.6 fL (7.2-11.7); MONO % 8.3 % (0.0-10.0); NEUT # 3.8 K/uL (1.8-7.0); NEUT % 32.6 % (50.0-75.0); RBC 2.88 Mil/uL (4.40-5.90); RED CELL DISTRIBUTION WIDTH 13.2 % (11.5-14.5); WHITE BLOOD COUNT 11.5 K/uL (4.8-10.8)
[2017-09-07 15:52] LABS: B-TYPE NATRIURETIC PEPTIDE 226 pg/mL (0-900)
[2017-09-07 16:04] LABS: ALB/GLOB RATIO 1.3 (1.0-2.1); ALBUMIN 3.5 g/dL (3.5-5.0); ALT/SGPT 37 U/L (21-72); AST/SGOT 36 U/L (17-59); BLOOD UREA NITROGEN 20 mg/dL (9-20); CALCIUM 8.3 mg/dl (8.6-10.4); CK-MB 1.28 ng/mL (0.0-3.38); GFR AFRICAN-AMERICAN > 60; GFR NON-AFRICAN AMERICAN > 60
--- NOTE | 2017-09-07 16:06 | RAD ---
PROCEDURE: CHEST RADIOGRAPH, 1 VIEW HISTORY: GI BLEED COMPARISON: 05/15/2017 FINDINGS: LUNGS: Clear. PLEURA: No pneumothorax or pleural fluid seen. CARDIOVASCULAR: Normal. OSSEOUS STRUCTURES: No significant abnormalities. VISUALIZED UPPER ABDOMEN: Normal. OTHER FINDINGS: None. IMPRESSION: No active disease.
--- NOTE | 2017-09-08 10:41 | CP.PCM.CON ---
<Shirley Campoverde - Last Filed: 09/08/17 10:32> History of Present Illness - History of Present Illness History of Present Illness: GI Fellow PGY4 Consult Note This is a 81yM with PMHx of Epilepsy and CAD with STEMI s/p APARNA 04/2017 on Aspirin and Brilinta presenting to the ED with complaints dark black stool for one week. Pt reports he is usually constipated and had three BM in the last week that was black colored, denies any bright red blood per rectum, not on iron supplementation and did not take pepto-bismol. Pt also reports a few weeks of generalized weakness and fatigue. No prior hx of GI bleeding. No EGD or colonoscopy. Pt follows up with . In the ER pt's Hgb was found to be 8.5 from baseline of 11 and s/p 2U PRBCs overnight. At this time pt feels better with no active GI bleeding reported. ROS: A 12pt ROS was negative except as above PMHx: As stated in HPI PSHx: Appendectomy SHx: Smoked 36 years ago, for 1 year - 6-10 / day, denied alcohol or illicit drug use FHx: Neg for colon cancer Past Patient History - Past Medical History & Family History Past Medical History?: Yes - Past Social History Smoking Status: Never Smoked - CARDIAC Hx Cardiac Disorders: Yes Hx Heart Attack: Yes (04/2017) - PULMONARY Hx Respiratory Disorders: No - NEUROLOGICAL Hx Neurological Disorder: Yes Hx Seizures: Yes (epilepsy) - HEENT Hx HEENT Problems: No - RENAL Hx Chronic Kidney Disease: No - ENDOCRINE/METABOLIC Hx Endocrine Disorders: No - HEMATOLOGICAL/ONCOLOGICAL Hx Blood Disorders: No - INTEGUMENTARY Hx Dermatological Problems: No - MUSCULOSKELETAL/RHEUMATOLOGICAL Hx Musculoskeletal Disorders: No Hx Falls: No - GASTROINTESTINAL Hx Gastrointestinal Disorders: No - GENITOURINARY/GYNECOLOGICAL Hx Genitourinary Disorders: No - PSYCHIATRIC Hx Psychophysiologic Disorder: No Hx Substance Use: No - SURGICAL HISTORY Hx Surgeries: Yes Hx Appendectomy: Yes - ANESTHESIA Hx Anesthesia: Yes Hx Anesthesia Reactions: No Hx Malignant Hyperthermia: No Has any member of the family had a problem w/ anesthesia?: No Meds Allergies/Adverse Reactions: Allergies Allergy/AdvReac Type Severity Reaction Status Date / Time No Known Allergies Allergy Verified 09/07/17 14:40 - Medications Medications: Current Medications Clonazepam (Klonopin) 0.5 mg PO Q12 [facility] Last Admin: 09/08/17 10:24 Dose: 0.5 mg Clopidogrel Bisulfate (Plavix) 75 mg PO DAILY [facility] Last Admin: 09/08/17 10:24 Dose: 75 mg Metoprolol Tartrate (Lopressor) 25 mg PO BID [facility] Last Admin: 09/08/17 10:25 Dose: 25 mg Pantoprazole Sodium (Protonix Inj) 40 mg IVP Q12H [facility] Last Admin: 09/07/17 21:03 Dose: 40 mg Phenytoin Sodium (Dilantin) 200 mg PO BID [facility] Last Admin: 09/08/17 10:24 Dose: 200 mg Rosuvastatin Calcium (Crestor) 20 mg PO HS [facility] Last Admin: 09/07/17 21:03 Dose: 20 mg Physical Exam - Constitutional Appears: Non-toxic, No Acute Distress - Head Exam Head Exam: ATRAUMATIC, NORMAL INSPECTION, NORMOCEPHALIC - Eye Exam Eye Exam: EOMI, Normal appearance, PERRL Pupil Exam: PERRL - ENT Exam ENT Exam: Mucous Membranes Moist, Normal Exam - Neck Exam Neck exam: Positive for: Normal Inspection - Respiratory Exam Respiratory Exam: Clear to Auscultation Bilateral, NORMAL BREATHING PATTERN - Cardiovascular Exam Cardiovascular Exam: REGULAR RHYTHM, RRR, +S1, +S2 - GI/Abdominal Exam GI & Abdominal Exam: Normal Bowel Sounds, Soft. absent: Distended, Organomegaly , Tenderness - Rectal Exam Rectal Exam: NORMAL INSPECTION. absent: Black Stool, Bloody Stool, Hemorrhoids Additional comments: brown stool, no melena or hematochezia - Extremities Exam Extremities exam: Positive for: normal inspection. Negative for: pedal edema - Back Exam Back exam: NORMAL INSPECTION - Neurological Exam Neurological exam: Alert, Oriented x3 - Psychiatric Exam Psychiatric exam: Normal Affect, Normal Mood - Skin Skin Exam: Dry, Intact, Normal Color, Warm Results - Vital Signs Recent Vital Signs: Last Vital Signs Temp 98.2 F 09/08/17 07:15 Pulse 75 09/08/17 08:00 Resp 18 09/08/17 07:15 BP 107/65 09/08/17 10:25 Pulse Ox 98 09/08/17 07:15 - Labs Result Diagrams: 09/07/17 15:20 09/07/17 15:20 Labs: Laboratory Results - last 24 hr 09/07/17 09/07/17 09/07/17 15:20 15:20 15:20 WBC 11.5 H RBC 2.88 L Hgb 8.5 L D Hct 25.7 L MCV 89.0 MCH 29.6 MCHC 33.3 RDW 13.2 Plt Count 224 MPV 8.6 Neut % (Auto) 32.6 L Lymph % (Auto) 54.0 H Rowan % (Auto) 8.3 Eos % (Auto) 4.8 H Baso % (Auto) 0.3 Neut # (Auto) 3.8 Lymph # (Auto) 6.2 H Rowan # (Auto) 1.0 H Eos # (Auto) 0.6 Baso # (Auto) 0.0 PT 11.0 INR 1.0 APTT 29 Sodium Potassium Chloride Carbon Dioxide Anion Gap BUN Creatinine Est GFR ( Amer) Est GFR (Non-Af Amer) Random Glucose Calcium Total Bilirubin AST ALT Alkaline Phosphatase Total Creatine Kinase CK-MB (Mass) Troponin I NT-Pro-B Natriuret Pep Total Protein Albumin Globulin Albumin/Globulin Ratio Stool Occult Blood Positive H Phenytoin Blood Type Antibody Screen 09/07/17 09/07/17 09/07/17 15:20 15:29 15:29 WBC RBC Hgb Hct MCV MCH MCHC RDW Plt Count MPV Neut % (Auto) Lymph % (Auto) Rowan % (Auto) Eos % (Auto) Baso % (Auto) Neut # (Auto) Lymph # (Auto) Rowan # (Auto) Eos # (Auto) Baso # (Auto) PT INR APTT Sodium 140 Potassium 3.9 Chloride 102 Carbon Dioxide 28 Anion Gap 13 BUN 20 Creatinine 1.1 Est GFR ( Amer) > 60 Est GFR (Non-Af Amer) > 60 Random Glucose 88 Calcium 8.3 L Total Bilirubin 0.2 AST 36 ALT 37 Alkaline Phosphatase 78 Total Creatine Kinase 82 CK-MB (Mass) 1.28 Troponin I < 0.0120 NT-Pro-B Natriuret Pep 226 Total Protein 6.1 L Albumin 3.5 Globulin 2.6 Albumin/Globulin Ratio 1.3 Stool Occult Blood Phenytoin 19.0 Blood Type O POSITIVE Antibody Screen Negative Assessment & Plan - Assessment and Plan (Free Text) Assessment: This is a 81yM with pmhx of epilepsy and CAD with STEMI and APARNA 04/2017 on aspirin and brilinta presenting with complaints of generalized weakness. 1. Anemia 2. CAD on Brilinta and Aspirin Plan: -Continue supportive care -Hgb stable at 8.5 s/p 2 U PRBCs, repeat H/H pending -No active GI bleeding at this time, rectal exam with brown stool -Monitor H/H and transfuse as needed -IV PPI BID -Clear liquid diet -NPO after midnight -Plan for diagnostic EGD tomorrow -Discussed with cardiology pt okay for EGD, pt needs to be on plavix for APARNA -Will continue to follow closely <Ottoniel Santacruz - Last Filed: 09/08/17 11:39> Meds - Medications Medications: Current Medications Clonazepam (Klonopin) 0.5 mg PO Q12 [facility] Last Admin: 09/08/17 10:24 Dose: 0.5 mg Clopidogrel Bisulfate (Plavix) 75 mg PO DAILY [facility] Last Admin: 09/08/17 10:24 Dose: 75 mg Metoprolol Tartrate (Lopressor) 25 mg PO BID [facility] Last Admin: 09/08/17 10:25 Dose: 25 mg Pantoprazole Sodium (Protonix Inj) 40 mg IVP Q12H [facility] Last Admin: 09/08/17 10:33 Dose: 40 mg Phenytoin Sodium (Dilantin) 200 mg PO BID [facility] Last Admin: 09/08/17 10:24 Dose: 200 mg Rosuvastatin Calcium (Crestor) 20 mg PO HS [facility] Last Admin: 09/07/17 21:03 Dose: 20 mg Results - Vital Signs Recent Vital Signs: Last Vital Signs Temp 98.2 F 09/08/17 07:15 Pulse 75 09/08/17 08:00 Resp 18 09/08/17 07:15 BP 107/65 09/08/17 10:25 Pulse Ox 100 09/08/17 11:10 - Labs Result Diagrams: 09/08/17 11:03 09/08/17 11:03 Labs: Laboratory Results - last 24 hr 09/07/17 09/07/17 09/07/17 15:20 15:20 15:20 WBC 11.5 H RBC 2.88 L Hgb 8.5 L D Hct 25.7 L MCV 89.0 MCH 29.6 MCHC 33.3 RDW 13.2 Plt Count 224 MPV 8.6 Neut % (Auto) 32.6 L Lymph % (Auto) 54.0 H Rowan % (Auto) 8.3 Eos % (Auto) 4.8 H Baso % (Auto) 0.3 Neut # (Auto) 3.8 Lymph # (Auto) 6.2 H Rowan # (Auto) 1.0 H Eos # (Auto) 0.6 Baso # (Auto) 0.0 PT 11.0 INR 1.0 APTT 29 Sodium Potassium Chloride Carbon Dioxide Anion Gap BUN Creatinine Est GFR ( Amer) Est GFR (Non-Af Amer) Random Glucose Calcium Total Bilirubin AST ALT Alkaline Phosphatase Total Creatine Kinase CK-MB (Mass) Troponin I NT-Pro-B Natriuret Pep Total Protein Albumin Globulin Albumin/Globulin Ratio Stool Occult Blood Positive H Phenytoin Blood Type Antibody Screen 09/07/17 09/07/17 09/07/17 15:20 15:29 15:29 WBC RBC Hgb Hct MCV MCH MCHC RDW Plt Count MPV Neut % (Auto) Lymph % (Auto) Rowan % (Auto) Eos % (Auto) Baso % (Auto) Neut # (Auto) Lymph # (Auto) Rowan # (Auto) Eos # (Auto) Baso # (Auto) PT INR APTT Sodium 140 Potassium 3.9 Chloride 102 Carbon Dioxide 28 Anion Gap 13 BUN 20 Creatinine 1.1 Est GFR ( Amer) > 60 Est GFR (Non-Af Amer) > 60 Random Glucose 88 Calcium 8.3 L Total Bilirubin 0.2 AST 36 ALT 37 Alkaline Phosphatase 78 Total Creatine Kinase 82 CK-MB (Mass) 1.28 Troponin I < 0.0120 NT-Pro-B Natriuret Pep 226 Total Protein 6.1 L Albumin 3.5 Globulin 2.6 Albumin/Globulin Ratio 1.3 Stool Occult Blood Phenytoin 19.0 Blood Type O POSITIVE Antibody Screen Negative 09/08/17 09/08/17 11:03 11:03 WBC 13.2 H RBC 3.75 L Hgb 11.2 L D Hct 33.5 L MCV 89.1 MCH 29.9 MCHC 33.5 RDW 13.2 Plt Count 230 MPV 8.7 Neut % (Auto) Lymph % (Auto) Rowan % (Auto) Eos % (Auto) Baso % (Auto) Neut # (Auto) Lymph # (Auto) Rowan # (Auto) Eos # (Auto) Baso # (Auto) PT INR APTT Sodium 138 Potassium 4.3 Chloride 101 Carbon Dioxide 28 Anion Gap 14 BUN 19 Creatinine 1.1 Est GFR ( Amer) > 60 Est GFR (Non-Af Amer) > 60 Random Glucose 65 L Calcium 8.4 L Total Bilirubin 0.7 AST 38 ALT 36 Alkaline Phosphatase 82 Total Creatine Kinase CK-MB (Mass) Troponin I NT-Pro-B Natriuret Pep Total Protein 6.5 Albumin 3.7 Globulin 2.8 Albumin/Globulin Ratio 1.3 Stool Occult Blood Phenytoin Blood Type Antibody Screen Attending/Attestation - Attestation I have personally seen and examined this patient.: Yes I have fully participated in the care of the patient.: Yes I have reviewed all pertinent clinical information: Yes Notes (Text): 09/08/17 11:36 This is a 81 yr old M with pmhx of epilepsy and CAD with STEMI and APARNA 04/2017 on aspirin and brilinta presenting with complaints of generalized weakness and drop in hb of 3 gm. s/p 2 units PRBC with rectal brown stool. He has been put on plavix by print developer automatic. plan for diagnostic EGD in am to rule out PUD. No biopsies will be taken as patient is on dual anti platelet. Monitor H/H and transfuse as needed. Clear liquid diet and po PPI. NPO past midnight. Discussed with print developer automatic Dr Tran and PMD Dr Hampton
[2017-09-08 11:17] LABS: HEMOGLOBIN 11.2 g/dL (12.0-18.0); MEAN CELL VOLUME 89.1 fL (80.0-94.0); MEAN CORPUSCULAR HEMOGLOBIN 29.9 pg (27.0-31.0); MEAN CORPUSCULAR HGB CONC 33.5 g/dL (33.0-37.0); MEAN PLATELET VOLUME 8.7 fL (7.2-11.7); RBC 3.75 Mil/uL (4.40-5.90); RED CELL DISTRIBUTION WIDTH 13.2 % (11.5-14.5); WHITE BLOOD COUNT 13.2 K/uL (4.8-10.8)
[2017-09-08 11:32] LABS: ALB/GLOB RATIO 1.3 (1.0-2.1); ALBUMIN 3.7 g/dL (3.5-5.0); ALT/SGPT 36 U/L (21-72); AST/SGOT 38 U/L (17-59); BLOOD UREA NITROGEN 19 mg/dL (9-20); CALCIUM 8.4 mg/dl (8.6-10.4); GFR AFRICAN-AMERICAN > 60; GFR NON-AFRICAN AMERICAN > 60
--- NOTE | 2017-09-08 23:29 | CP.PCM.CON ---
History of Present Illness - History of Present Illness History of Present Illness: consultation for evaluation of LGIB on DAPT for recent stent in RCA for AMI in HPI: Breanna is a pleasant 81-year-old male with history of acute myocardial infarction status post stenting of mid RCA done in April 2017 he was noted to have on that angiogram moderate LAD disease for which he underwent new stress test in May which showed no evidence of ischemia he has been very compliant with his medications and went to the cardiac rehab program he started feeling fatigue and lethargic and when this presentation was noted to have dark stools with new onset anemia and therefore is being evaluated for possible GI evaluation aspirin and Brilinta was held and he was switched to Plavix he received 2 units of packed RBC transfusion is being evaluated for possible GI evaluation in the morning. Review of Systems - Review of Systems Systems not reviewed;Unavailable: Acuity of Condition - Constitutional Constitutional: As Per HPI - EENT Eyes: As Per HPI Ears: As Per HPI Nose/Mouth/Throat: As Per HPI - Cardiovascular Cardiovascular: As Per HPI - Respiratory Respiratory: As Per HPI - Gastrointestinal Gastrointestinal: As Per HPI - Genitourinary Genitourinary: As Per HPI - Reproductive: Male Reproductive:Male: As Per HPI - Musculoskeletal Musculoskeletal: As Per HPI - Integumentary Integumentary: As Per HPI - Neurological Neurological: As Per HPI - Psychiatric Psychiatric: As Per HPI - Endocrine Endocrine: As Per HPI - Hematologic/Lymphatic Hematologic: As Per HPI Past Patient History - Past Medical History & Family History Past Medical History?: Yes - Past Social History Smoking Status: Never Smoked - CARDIAC Hx Cardiac Disorders: Yes Hx Heart Attack: Yes (04/2017) - PULMONARY Hx Respiratory Disorders: No - NEUROLOGICAL Hx Seizures: Yes (epilepsy) - HEENT Hx HEENT Problems: No - RENAL Hx Chronic Kidney Disease: No - ENDOCRINE/METABOLIC Hx Endocrine Disorders: No - HEMATOLOGICAL/ONCOLOGICAL Hx Blood Disorders: No - INTEGUMENTARY Hx Dermatological Problems: No - MUSCULOSKELETAL/RHEUMATOLOGICAL Hx Musculoskeletal Disorders: No Hx Falls: No - GASTROINTESTINAL Hx Gastrointestinal Disorders: No - GENITOURINARY/GYNECOLOGICAL Hx Genitourinary Disorders: No - PSYCHIATRIC Hx Substance Use: No - SURGICAL HISTORY Hx Appendectomy: Yes - ANESTHESIA Hx Anesthesia: Yes Hx Anesthesia Reactions: No Hx Malignant Hyperthermia: No Has any member of the family had a problem w/ anesthesia?: No Meds Allergies/Adverse Reactions: Allergies Allergy/AdvReac Type Severity Reaction Status Date / Time No Known Allergies Allergy Verified 09/07/17 14:40 - Medications Medications: Current Medications Clonazepam (Klonopin) 0.5 mg PO Q12 [facility] Last Admin: 09/08/17 21:24 Dose: 0.5 mg Clopidogrel Bisulfate (Plavix) 75 mg PO DAILY [facility] Last Admin: 09/08/17 10:24 Dose: 75 mg Metoprolol Tartrate (Lopressor) 25 mg PO BID [facility] Last Admin: 09/08/17 17:41 Dose: 25 mg Pantoprazole Sodium (Protonix Inj) 40 mg IVP Q12H [facility] Last Admin: 09/08/17 21:24 Dose: 40 mg Phenytoin Sodium (Dilantin) 200 mg PO BID [facility] Last Admin: 09/08/17 17:38 Dose: 200 mg Rosuvastatin Calcium (Crestor) 20 mg PO HS [facility] Last Admin: 09/08/17 21:24 Dose: 20 mg Physical Exam - Constitutional Appears: Well - Head Exam Head Exam: ATRAUMATIC, NORMAL INSPECTION, NORMOCEPHALIC - Eye Exam Eye Exam: EOMI, Normal appearance, PERRL Pupil Exam: NORMAL ACCOMODATION, PERRL - ENT Exam ENT Exam: Mucous Membranes Moist, Normal Exam - Neck Exam Neck exam: Positive for: Normal Inspection - Respiratory Exam Respiratory Exam: Clear to Auscultation Bilateral, NORMAL BREATHING PATTERN - Cardiovascular Exam Cardiovascular Exam: REGULAR RHYTHM, RRR, +S1, +S2, Systolic Murmur - GI/Abdominal Exam GI & Abdominal Exam: Normal Bowel Sounds, Soft. absent: Tenderness - Extremities Exam Extremities exam: Positive for: normal inspection - Back Exam Back exam: NORMAL INSPECTION - Neurological Exam Neurological exam: Alert, CN II-XII Intact, Normal Gait, Oriented x3, Reflexes Normal - Psychiatric Exam Psychiatric exam: Normal Affect, Normal Mood - Skin Skin Exam: Dry, Intact, Normal Color, Warm Results - Vital Signs Recent Vital Signs: Last Vital Signs Temp 98.2 F 09/08/17 15:00 Pulse 62 09/08/17 16:20 Resp 20 09/08/17 15:00 BP 106/65 09/08/17 17:41 Pulse Ox 96 09/08/17 15:00 - Labs Result Diagrams: 09/08/17 11:03 09/08/17 11:03 Labs: Laboratory Results - last 24 hr 09/07/17 09/08/17 09/08/17 15:29 11:03 11:03 WBC 13.2 H RBC 3.75 L Hgb 11.2 L D Hct 33.5 L MCV 89.1 MCH 29.9 MCHC 33.5 RDW 13.2 Plt Count 230 MPV 8.7 Sodium 138 Potassium 4.3 Chloride 101 Carbon Dioxide 28 Anion Gap 14 BUN 19 Creatinine 1.1 Est GFR ( Amer) > 60 Est GFR (Non-Af Amer) > 60 Random Glucose 65 L Calcium 8.4 L Total Bilirubin 0.7 AST 38 ALT 36 Alkaline Phosphatase 82 Total Protein 6.5 Albumin 3.7 Globulin 2.8 Albumin/Globulin Ratio 1.3 Blood Type O POSITIVE Antibody Screen Negative Assessment & Plan (1) Preop cardiovascular exam Assessment and Plan: stable to proceed with GI evaluation n cont plavix Status: Acute (2) CAD (coronary artery disease) Assessment and Plan: hold DAPT cont plavix cont BB, statins Status: Acute (3) Hx of percutaneous transluminal coronary angioplasty Status: Acute (4) Anemia Status: Acute (5) GI bleed Status: Acute (6) Weakness generalized Status: Acute
--- NOTE | 2017-09-08 23:41 | HP ---
HISTORY OF PRESENT ILLNESS: This is an 81-year-old [place] male with history of multiple medical problems including coronary artery disease status post PCI, was admitted for generalized weakness and having melanotic stool. The patient was examined in the emergency room and he was found to have hemoglobin of 8.5 and hematocrit 25.7 with generalized pallor and stool was occult positive. The patient was admitted for further management after consultation with Cardiology and with Gastroenterology. PAST MEDICAL HISTORY: Coronary artery disease, hypertension, and hypercholesterolemia. SOCIAL HISTORY: No history of smoking, EtOH or substance abuse. FAMILY HISTORY: Noncontributory. PHYSICAL EXAMINATION: GENERAL: The patient is in bed, not in any cardiopulmonary distress. VITAL SIGNS: Blood pressure 106/65, temperature 98.2, respiratory rate 20 and pulse 62. HEENT: Pupils equal, reactive to light. Normal-appearing mucosa of the conjunctivae, oropharynx and nasal membrane mucosa. NECK: Supple. No JVD. No carotid bruit. No lymph node. No thyromegaly. CHEST AND LUNGS: Bilateral symmetrical expansion. Good air exchange. No rales, no rhonchi. CARDIOVASCULAR SYSTEM: PMI not localized. S1, S2. No additional sounds. ABDOMEN: Normoactive bowel sounds. No tenderness. No organomegaly. No masses. EXTREMITIES: No cyanosis, no clubbing, no edema. PROJECT MANAGER RETAIL: Alert, awake, oriented x3. No neurological deficit could be appreciated. ASSESSMENT: Gastrointestinal bleeding, coronary artery disease, anemia of acute blood loss. PLAN: We will start the patient on H2 and proton pump inhibitor and consulted Cardiology and Gastroenterology. We will follow their directions. We will stop Brilinta and aspirin and have the patient on Plavix. Discussed patient's condition with the patient and his at the bedside. Merlene Hampton MD
[2017-09-09 06:41] LABS: HEMOGLOBIN 11.6 g/dL (12.0-18.0); MEAN CELL VOLUME 89.1 fL (80.0-94.0); MEAN CORPUSCULAR HEMOGLOBIN 30.1 pg (27.0-31.0); MEAN CORPUSCULAR HGB CONC 33.8 g/dL (33.0-37.0); MEAN PLATELET VOLUME 8.7 fL (7.2-11.7); RBC 3.84 Mil/uL (4.40-5.90); RED CELL DISTRIBUTION WIDTH 13.8 % (11.5-14.5); WHITE BLOOD COUNT 11.3 K/uL (4.8-10.8)
[2017-09-09 06:43] LABS: PROTHROMBIN TIME 11.3 SECONDS (9.7-12.2)
[2017-09-09 07:06] LABS: ALB/GLOB RATIO 1.2 (1.0-2.1); ALBUMIN 3.7 g/dL (3.5-5.0); ALT/SGPT 33 U/L (21-72); AST/SGOT 34 U/L (17-59); BLOOD UREA NITROGEN 13 mg/dL (9-20); CALCIUM 8.7 mg/dl (8.6-10.4); GFR AFRICAN-AMERICAN > 60; GFR NON-AFRICAN AMERICAN > 60
[2017-09-09] MEDS ORDERED: Propofol 10 mg/ml Inj (20 ML) ONE (08:19)
--- NOTE | 2017-09-09 12:10 | CP.PCM.PN ---
Subjective - Date & Time of Evaluation Date of Evaluation: 09/09/17 Time of Evaluation: 12:08 - Subjective Subjective: Cardiology Progress Note (Dr. Tran): Patient seen and assessed at bedside with present. No acute events were noted overnight. Patient currently without complaints. He denies fevers, chills , headache, palpitations, chest pain, leg swelling, syncope, SOB, cough, wheezing, abdominal pain, N/V/D/C, melena, hematochezia, hematemesis, changes in urine output, skin changes or any new numbness/tingling/weakness of any extremity. Objective - Vital Signs/Intake and Output Vital Signs (last 24 hours): Temp Pulse Resp BP Pulse Ox 97.3 F L 75 16 118/72 100 09/09/17 10:01 09/09/17 10:01 09/09/17 10:01 09/09/17 10:50 09/09/17 10:01 Intake and Output: 09/09/17 09/09/17 06:59 18:59 Intake Total 10 600 Output Total 850 Balance -840 600 - Medications Medications: Current Medications Clonazepam (Klonopin) 0.5 mg PO Q12 [facility] Last Admin: 09/09/17 10:35 Dose: 0.5 mg Clopidogrel Bisulfate (Plavix) 75 mg PO DAILY [facility] Last Admin: 09/09/17 10:36 Dose: 75 mg Famotidine (Pepcid) 20 mg PO BID [facility] Metoprolol Tartrate (Lopressor) 25 mg PO BID [facility] Last Admin: 09/09/17 10:50 Dose: 25 mg Phenytoin Sodium (Dilantin) 200 mg PO BID [facility] Last Admin: 09/09/17 10:35 Dose: 200 mg Polyethylene Glycol (Miralax) 17 gm PO DAILY [facility] Rosuvastatin Calcium (Crestor) 20 mg PO HS [facility] Last Admin: 09/08/17 21:24 Dose: 20 mg - Labs Labs: 09/09/17 06:32 09/09/17 06:32 PT 11.3 SECONDS (9.7-12.2) 09/09/17 06:32 INR 1.0 09/09/17 06:32 APTT 29 SECONDS (21-34) 09/07/17 15:20 - Constitutional Appears: Non-toxic, No Acute Distress - Head Exam Head Exam: ATRAUMATIC, NORMOCEPHALIC - Eye Exam Eye Exam: Normal appearance - ENT Exam ENT Exam: Mucous Membranes Moist, Normal Exam - Neck Exam Neck Exam: Full ROM, Normal Inspection - Respiratory Exam Respiratory Exam: Clear to Ausculation Bilateral, NORMAL BREATHING PATTERN. absent: Accessory Muscle Use, Chest Wall Tenderness, Decreased Breath Sounds, Prolonged Expiratory Phase, Rales, Rhonchi, Wheezes, Respiratory Distress, Stridor - Cardiovascular Exam Cardiovascular Exam: REGULAR RHYTHM, RRR, +S1, +S2. absent: Bradycardia, Tachycardia, Clicks, Diastolic murmur, Gallop, Irregular Rhythm, JVD, Rubs, +S4 - GI/Abdominal Exam GI & Abdominal Exam: Soft, Normal Bowel Sounds. absent: Bruit, Distended, Firm , Guarding, Rigid, Tenderness, Diminished Bowel Sounds, Hernia, Hyperactive Bowel Sounds, Hypoactive Bowel Sounds, Organomegaly, Pulsatile Mass, Rebound, Mass - Extremities Exam Extremities Exam: Full ROM, Normal Capillary Refill, Normal Inspection. absent : Calf Tenderness, Joint Swelling, Pedal Edema, Tenderness - Neurological Exam Neurological Exam: Alert, Awake, Oriented x3 - Psychiatric Exam Psychiatric exam: Normal Affect, Normal Mood - Skin Skin Exam: Dry, Intact, Normal Color, Warm Assessment and Plan - Assessment and Plan (Free Text) Assessment: 81M admitted for GI bleed while on daily DAPT Plan: 1. UGIB s/p transfusion 2u pRBC's -EGD noted -VSS -Continue to hold DAPT until GI evaluation complete and HDS -Further recommendations per GI 2. CAD -Continue daily Plavix, Metoprolol and Statin Case discussed with attending, Dr. Tran. Violet PGY1
[2017-09-09] MEDS: POLYETHYLENE GLYCOL 3350 17 GM/Dose PACKET PO SCH (12:30)
[2017-09-09 15:43] VITALS: RESP 20
--- NOTE | 2017-09-10 02:04 | PN ---
DATE: 09/09/2017 DAILY PROGRESS NOTE SUBJECTIVE: The patient was seen today, 09/09/2017. He is not in any cardiopulmonary distress. Status post EGD. PHYSICAL EXAMINATION: VITAL SIGNS: Blood pressure 94/59, temperature 98.1, respiratory rate 20 and pulse 57. HEENT: Pupils equal and reactive to light. Normal-appearing mucosa of the conjunctivae, oropharynx and nasal membrane mucosa. NECK: Supple. No JVD. No carotid bruit. No lymph node. No thyromegaly. CHEST AND LUNGS: Bilateral symmetrical expansion. Good air exchange. No rales. No rhonchi. CARDIOVASCULAR SYSTEM: PMI not localized. S1, S2. No additional sounds. ABDOMEN: Normoactive bowel sounds. No tenderness. No organomegaly. No masses. EXTREMITIES: No cyanosis, no clubbing, no edema. PRESS DEPARTMENT MANAGER: Alert, awake, oriented x3. No neurological deficit could be appreciated. ASSESSMENT: Upper gastrointestinal bleeding, status post esophagogastroduodenoscopy with prepyloric superficial ulcer which is not actively bleeding. Coronary artery disease. PLAN: Continue current medications including Plavix 75 mg daily. Continue Protonix and Plavix. Discussed the patient's condition with Dr. Tran. Merlene Hampton MD
[2017-09-10 07:23] LABS: BASO % 0.3 % (0.0-2.0); EOS # 0.7 K/uL (0.0-0.7); EOS % 6.3 % (0.0-4.0); HEMOGLOBIN 11.5 g/dL (12.0-18.0); LYMPH # 5.2 K/uL (1.0-4.3); LYMPH % 46.3 % (20.0-40.0); MEAN CELL VOLUME 88.7 fL (80.0-94.0); MEAN CORPUSCULAR HEMOGLOBIN 29.5 pg (27.0-31.0); MEAN CORPUSCULAR HGB CONC 33.3 g/dL (33.0-37.0); MEAN PLATELET VOLUME 8.3 fL (7.2-11.7); MONO # 0.9 K/uL (0.0-0.8); MONO % 8.1 % (0.0-10.0); NEUT # 4.4 K/uL (1.8-7.0); RBC 3.9 Mil/uL (4.40-5.90); RED CELL DISTRIBUTION WIDTH 13.8 % (11.5-14.5); WHITE BLOOD COUNT 11.2 K/uL (4.8-10.8)
--- NOTE | 2017-09-10 07:32 | CP.PCM.PN ---
<Shirley Campoverde - Last Filed: 09/10/17 08:42> Subjective - Date & Time of Evaluation Date of Evaluation: 09/10/17 Time of Evaluation: 07:00 - Subjective Subjective: GI Fellow PGY4 Progress Note Pt seen and evaluated at bedside, pt doing well with no complaints of black stool or rectal bleeding. Tolerating diet with no N/V. ROS: A 12pt ROS was negative except as above. Objective - Vital Signs/Intake and Output Vital Signs (last 24 hours): Temp Pulse Resp BP Pulse Ox 97.8 F 73 20 114/67 99 09/10/17 04:20 09/10/17 04:20 09/10/17 04:20 09/10/17 04:20 09/10/17 04:20 Intake and Output: 09/10/17 09/10/17 06:59 18:59 Intake Total 550 Balance 550 - Medications Medications: Current Medications Clonazepam (Klonopin) 0.5 mg PO Q12 [facility] Last Admin: 09/09/17 21:21 Dose: 0.5 mg Clopidogrel Bisulfate (Plavix) 75 mg PO DAILY [facility] Last Admin: 09/09/17 10:36 Dose: 75 mg Famotidine (Pepcid) 20 mg PO BID [facility] Last Admin: 09/09/17 17:20 Dose: 20 mg Metoprolol Tartrate (Lopressor) 25 mg PO BID [facility] Last Admin: 09/09/17 17:20 Dose: Not Given Phenytoin Sodium (Dilantin) 200 mg PO BID [facility] Last Admin: 09/09/17 17:20 Dose: 200 mg Polyethylene Glycol (Miralax) 17 gm PO DAILY [facility] Last Admin: 09/09/17 12:30 Dose: 17 gm Rosuvastatin Calcium (Crestor) 20 mg PO HS [facility] Last Admin: 09/09/17 21:21 Dose: 20 mg - Labs Labs: 09/10/17 06:57 09/09/17 06:32 PT 11.3 SECONDS (9.7-12.2) 09/09/17 06:32 INR 1.0 09/09/17 06:32 APTT 29 SECONDS (21-34) 09/07/17 15:20 - Constitutional Appears: Non-toxic, No Acute Distress - Head Exam Head Exam: ATRAUMATIC, NORMAL INSPECTION, NORMOCEPHALIC - Eye Exam Eye Exam: EOMI, Normal appearance, PERRL - ENT Exam ENT Exam: Mucous Membranes Moist - Neck Exam Neck Exam: Full ROM, Normal Inspection - Respiratory Exam Respiratory Exam: Clear to Ausculation Bilateral, NORMAL BREATHING PATTERN - Cardiovascular Exam Cardiovascular Exam: REGULAR RHYTHM, RRR, +S1, +S2 - GI/Abdominal Exam GI & Abdominal Exam: Soft, Normal Bowel Sounds. absent: Distended, Tenderness - Rectal Exam Rectal Exam: Deferred - Extremities Exam Extremities Exam: Full ROM, Normal Inspection - Back Exam Back Exam: NORMAL INSPECTION - Neurological Exam Neurological Exam: Alert, Awake, Oriented x3 - Psychiatric Exam Psychiatric exam: Normal Affect, Normal Mood - Skin Skin Exam: Dry, Intact, Normal Color, Warm Assessment and Plan - Assessment and Plan (Free Text) Assessment: This is a 81yM with pmhx of epilepsy and CAD with STEMI and APARNA 04/2017 on aspirin and brilinta presenting with complaints of generalized weakness. 1. Anemia 2. CAD on Brilinta and Aspirin 3. PUD-Gastric antral ulcer Plan: -Continue supportive care -Hgb stable at 11.6 s/p 2 U PRBCs -No active GI bleeding at this time -Monitor H/H and transfuse as needed -PPI po daily -Diet as tolerated -s/p diagnostic EGD with gastric ulcer FCIII, no active bleeding -Recommend repeat EGD in 3 months to follow up on ulcer -Recommend outpt colonoscopy -Okay to continue antiplatlet therapy per cardiology with PPI therapy -Followup outpt with GI <Sushil Shin - Last Filed: 09/10/17 09:01> Objective - Vital Signs/Intake and Output Vital Signs (last 24 hours): Temp Pulse Resp BP Pulse Ox 97.7 F 73 20 113/67 97 09/10/17 07:00 09/10/17 07:00 09/10/17 07:00 09/10/17 07:00 09/10/17 07:00 Intake and Output: 09/10/17 09/10/17 06:59 18:59 Intake Total 550 Balance 550 - Medications Medications: Current Medications Clonazepam (Klonopin) 0.5 mg PO Q12 [facility] Last Admin: 09/09/17 21:21 Dose: 0.5 mg Clopidogrel Bisulfate (Plavix) 75 mg PO DAILY [facility] Last Admin: 09/09/17 10:36 Dose: 75 mg Famotidine (Pepcid) 20 mg PO BID [facility] Last Admin: 09/09/17 17:20 Dose: 20 mg Metoprolol Tartrate (Lopressor) 25 mg PO BID [facility] Last Admin: 09/09/17 17:20 Dose: Not Given Phenytoin Sodium (Dilantin) 200 mg PO BID [facility] Last Admin: 09/09/17 17:20 Dose: 200 mg Polyethylene Glycol (Miralax) 17 gm PO DAILY [facility] Last Admin: 09/09/17 12:30 Dose: 17 gm Rosuvastatin Calcium (Crestor) 20 mg PO HS [facility] Last Admin: 09/09/17 21:21 Dose: 20 mg - Labs Labs: 09/10/17 06:57 09/10/17 06:58 PT 11.3 SECONDS (9.7-12.2) 09/09/17 06:32 INR 1.0 09/09/17 06:32 APTT 29 SECONDS (21-34) 09/07/17 15:20 Attending/Attestation - Attestation I have personally seen and examined this patient.: Yes I have fully participated in the care of the patient.: Yes I have reviewed all pertinent clinical information, including history, physical exam and plan: Yes Notes (Text): 09/10/17 08:58 I have seen and examined patient with GI fellow. No acute events overnight, he is seen resting in bed comfortably. He denies abdominal pain, nausea, vomiting , fever/chills. Tolerating PO diet without difficulty. Review of vitals from today are normal. CAD on plavix Anemia s/p EGD yesterday showing clean based antral ulcer, biopsies not taken due to patient on anti-platelet therapy - Diet as tolerated - H/H stable, s/p PRBC transfusion - Continue with PPI - Follow up stool Hpylori antigen - Patient would benefit from repeat EGD within 2 months along with screening colonoscopy to complete anemia workup. From GI perspective ok to discharge home with subsequent outpatient follow up. Office contact information given to patient. Please reconsult as necessary, thank you.
[2017-09-10 07:40] LABS: BLOOD UREA NITROGEN 17 mg/dL (9-20); CALCIUM 8.6 mg/dl (8.6-10.4); GFR AFRICAN-AMERICAN > 60; GFR NON-AFRICAN AMERICAN 58
[2017-09-10] MEDS: POLYETHYLENE GLYCOL 3350 17 GM/Dose PACKET PO SCH (09:33)
--- NOTE | 2017-09-10 12:13 | CARD ---
APPROVED REPORT EKG Measurement Heart [id number] <Conclusion> Normal sinus rhythm Normal ECG
--- NOTE | 2017-09-10 13:17 | CP.PCM.PN ---
Subjective - Date & Time of Evaluation Date of Evaluation: 09/10/17 Time of Evaluation: 11:45 - Subjective Subjective: [employer] NOTES Patient seen today, denies any abdominal pain, N/V/ chest pain, sob , or rectal bleeding tolerating diet s/p PRBC transfusion s/p EGD with gastric ulcer FCIII, no active bleeding hgb improved and stable - 11.5>11.2>8.5 Objective - Vital Signs/Intake and Output Vital Signs (last 24 hours): Temp Pulse Resp BP Pulse Ox 97.7 F 73 20 111/66 97 09/10/17 07:00 09/10/17 07:00 09/10/17 07:00 09/10/17 09:34 09/10/17 07:00 Intake and Output: 09/10/17 09/10/17 06:59 18:59 Intake Total 550 Balance 550 - Medications Medications: Current Medications Clonazepam (Klonopin) 0.5 mg PO Q12 [facility] Last Admin: 09/10/17 09:32 Dose: 0.5 mg Clopidogrel Bisulfate (Plavix) 75 mg PO DAILY [facility] Last Admin: 09/10/17 09:32 Dose: 75 mg Famotidine (Pepcid) 20 mg PO BID [facility] Last Admin: 09/10/17 09:32 Dose: 20 mg Metoprolol Tartrate (Lopressor) 25 mg PO BID [facility] Last Admin: 09/10/17 09:34 Dose: 25 mg Phenytoin Sodium (Dilantin) 200 mg PO BID [facility] Last Admin: 09/10/17 09:31 Dose: 200 mg Polyethylene Glycol (Miralax) 17 gm PO DAILY [facility] Last Admin: 09/10/17 09:33 Dose: 17 gm Rosuvastatin Calcium (Crestor) 20 mg PO HS [facility] Last Admin: 09/09/17 21:21 Dose: 20 mg - Labs Labs: 09/10/17 06:57 09/10/17 06:58 PT 11.3 SECONDS (9.7-12.2) 09/09/17 06:32 INR 1.0 09/09/17 06:32 APTT 29 SECONDS (21-34) 09/07/17 15:20 Assessment and Plan - Assessment and Plan (Free Text) Assessment: A/P 81yM with pmhx of epilepsy and CAD with STEMI and APARNA 04/2017 on aspirin and brilinta presented to ER with weakness and black stool , and found hg b 8.5 and admitted with GI bleed, symptomatic Anemia, Weakness generalized, s/p PRBC transfusion hgb improved and stable s/p EGD - see report for details seen by merrick Maurice for discharge home today with plavix daily and protonix 40 mg bid discharge plan discussed wit patient , who understands and agrees with plan RX given
[2017-09-10 16:32] VITALS: BP 103/62; TEMP 98.7; O2SAT 98
[2017-09-10 16:52] VITALS: PULSE 72
--- NOTE | 2017-09-27 11:16 | DS ---
REASON FOR ADMISSION: This is an 81-year-old [place] male with history of coronary artery disease, status post PCI 4 months earlier, was admitted for melena and drop of hemoglobin. COURSE OF HOSPITALIZATION: The patient was admitted to medical floor and he had an EGD done by Gastroenterology that showed a nonbleeding peptic ulcer disease. The patient's aspirin was stopped and the patient was discharged on Plavix as well as proton pump inhibitors. There was no further bleeding and Cardiology, Dr. Tran, was consulted, the patient's pastry wrapper, who suggested and agreed for the treatment. FINAL DIAGNOSES: Upper gastrointestinal bleeding, prepyloric superficial gastric ulcer, anemia of acute blood loss, coronary artery disease, hypertension. [facility] MD Memo
== END 2017-09-10 20:18 | disposition home health service (06) | DRG 378 ==
LOC: C.ER 14:27 → C.9E 16:42 → C.6T 17:28
PROVIDERS: ADMIT Internal Medicine; ATTEND Internal Medicine
PROC: 30233N1 Transfusion of Nonautologous Red Blood Cells into Peripheral Vein, Percutaneous Approach (ICD-10-PCS; principal; 2017-09-07)
PROC: 0DJ08ZZ Inspection of Upper Intestinal Tract, Via Natural or Artificial Opening Endoscopic (ICD-10-PCS; 2017-09-09)
DX: K25.4 Chronic or unspecified gastric ulcer with hemorrhage (principal); D62 Acute posthemorrhagic anemia; D68.9 Coagulation defect, unspecified; E78.00 Pure hypercholesterolemia, unspecified; G40.909 Epilepsy, unspecified, not intractable, without status epilepticus; I10 Essential (primary) hypertension; I25.10 Atherosclerotic heart disease of native coronary artery without angina pectoris; K59.00 Constipation, unspecified; Z95.5 Presence of coronary angioplasty implant and graft; I25.2 Old myocardial infarction; Z90.49 Acquired absence of other specified parts of digestive tract